=== PATIENT | female | born 2000 | race African-American/Black ===

== ENCOUNTER 2023-11-30 10:14 | Outpatient (REF) | payer MEDICAID, SELFPAY ==
[2023-11-30 11:33] LABS: MANUAL DIFF FLAG NO
[2023-11-30 12:01] LABS: Basophils Percent Auto 0.4 % (0-2); Eosinophils Absolute Auto 0.1 X10*3/uL (0.0-0.4); Eosinophils Percent Auto 0.9 % (0-4); Hematocrit 36.3 % (37.0-47.0); Hemoglobin 11.2 g/dl (12.0-16.0); Imm Gran Abs Auto 0.02 X10*3/uL (0.00-0.03); Imm Gran Pct Auto 0.4 % (0.0-0.4); Lymphocytes Absolute Auto 2.5 X10*3/uL (1.2-4.9); Lymphocytes Percent Auto 46.3 % (20-40); Mean Corpuscular HGB Conc 30.9 g/dl (31.0-35.0); Mean Corpuscular Hemoglobin 23.1 pg (27.0-33.0); Monocytes Absolute Auto 0.5 X10*3/uL (0.1-1.2); Monocytes Percent Auto 9.3 % (2-11); Neutrophils Absolute Auto 2.4 x10*3/uL (2.0-8.3); Neutrophils Percent Auto 42.7 % (45-73); Platelet Count 361 X10*3/uL (160-400); Red Blood Count 4.84 X10*6/uL (4.20-5.50); Red Cell Distribution Width 17.4 % (11.0-16.0); White Blood Count 5.5 X10*3/uL (4.8-10.8)
[2023-11-30 12:41] LABS: Estimated Average Glucose 111 mg/dL; Hemoglobin A1c % 5.5 % (<6.0)
[2023-11-30 12:43] LABS: Alanine Aminotransferase 16 U/L (0-31); Albumin Level 3.8 g/dL (3.5-5.0); Alkaline Phosphatase 56 U/L (39-117); Anion Gap 9 (12-20); Aspartate Amino Transferase 17 U/L (5-31); Bilirubin Total 0.5 mg/dL (0.0-1.0); Blood Urea Nitrogen 10 mg/dL (9-16); Calcium 8.9 mg/dL (8.4-10.2); Carbon Dioxide 27 mmol/L (22-29); Chloride 108 mmol/L (96-108); Cholesterol 173 mg/dL (<200); Estimated Glomerular Filt Rate > 60; Glucose Random 104 mg/dL (60-115); HDL Cholesterol 46 mg/dL (>40); LDL Cholesterol Calculated 115 mg/dL (<100); Potassium 4.1 mmol/L (3.3-5.1); Sodium 140 mmol/L (135-145); TSH reflex Free T4 1.55 uIU/mL (0.32-4.0); Triglycerides 61 mg/dL (<150); Vitamin D 25-OH Total 10.9 ng/mL (>30)
[2023-11-30 12:56] LABS: HBc Num1 4.52 S/CO (0.00-0.79)
[2023-12-01 08:12] LABS: HBc Num3 4.63 S/CO; Hepatitis B Core Antibody Reactive (Nonreactive)
[2023-12-02 17:18] LABS: Hepatitis B Core Antibody IgM NON-REACTIVE (NON-REACTIVE)
== END 2023-11-30 10:15 | disposition home or self-care (01) ==
LOC: HO.HHCL 10:14
PROVIDERS: Visit Provider General Practice
DX: Z00.00 Encounter for general adult medical examination without abnormal findings (principal)
CPT/HCPCS: 36415; 80053; 80061; 82306; 83036; 84443; 85025; 86704; 86705

== ENCOUNTER 2023-12-27 14:36 | Outpatient (REF) | payer MEDICAID, SELFPAY ==
[2023-12-27 17:10] LABS: Folate 12.5 ng/mL (> or = 4.0); Vitamin B12 384 pg/mL (200-900)
[2023-12-28 05:56] LABS: HBsAGNum2 Reactive; HBsAGNum3 Reactive
[2023-12-28 05:57] LABS: Hepatitis B Surface Antigen Retest CNFM (Negative)
== END 2023-12-27 14:37 | disposition home or self-care (01) ==
LOC: HO.HHCL 14:36
PROVIDERS: Visit Provider General Practice
DX: B18.1 Chronic viral hepatitis B without delta-agent (principal); E66.3 Overweight
CPT/HCPCS: 36415; 82607; 82746; 87340

== ENCOUNTER 2024-03-08 16:44 | Outpatient (REF) | payer MEDICAID, SELFPAY ==
[2024-03-11 01:38] LABS: TS Negative Control Passed; TS Panel A 0; TS Panel B 0; TS Positive Control Passed; TSpotTB Negative (Negative)
== END 2024-03-08 16:45 | disposition home or self-care (01) ==
LOC: HO.HHCL 16:44
PROVIDERS: Visit Provider General Practice
DX: Z02.1 Encounter for pre-employment examination (principal)
CPT/HCPCS: 36415; 86481

== ENCOUNTER 2025-03-13 11:04 | Outpatient (REF) | payer MEDICAID, SELFPAY ==
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
--- OUTSIDE RECORDS SUMMARY | 2025-03-13 12:34 | XMS_ITS | Encounter Summary ---
Author Organization [employer] Address [address] [facility] [address] [place] [address] Care Team Providers Care Supervisor [employer] Name Role Phone Yanique Matos MD Primary Care Provider [phone] Encounter Details Date Type Department Care Team (Late st Contact Info) Description 12/27/2023 Orders Only [facility] [address] [place], [place] [phone] Yanique Matos MD [address] [place], [place] [phone] Overweight (Primary Dx) Social History Tobacco Use Types Packs/Day Years Used Date Smoking Tobacco: Never Smokeless Tobacco: Never Alcohol Use Standard Drinks/Week Comments Never 0 (1 standard drink = 0.6 oz pur e alcohol) Depression Answer Date Recorded Patient Health Questionnaire-9 Score 0 11/30/2023 Patient Health Questionnaire-9 Score 0 11/30/2023 Last PHQ-9: Questionnaire Data Not on file 0 11/30/2023 Housing Stability Answer Date Recorded What is your housing situation today? I have doc estrella 11/30/[address] you li ve. Do you have problems with any of the following? None of the above 11/30/2023 Food Insecurity Answer Date Recorded Within the past 12 months, y ou worried that your food would run out before you got money to buy more: Never True 11/30/2023 Within the past 12 months,th e food you bought just didn't last and you didn't have enough money to get more: Never True Transportation Answer Date Recorded In the past 12 months, has l ack of transportation kept you from medical appts, meetings, work or from getting things needed for daily living? No 11/30/2023 Utilities Answer Date Recorded In the past 12 months, has t he electric, gas, oil or water company threatened to shut off services in your home? I am not sure 11/30/2023 Depression Answer Date Recorded Patient Health Questionnaire-2 Score 0 11/30/2023 Comments Unknown Sex and Gender Information Value Date Recorded Sex Assigned at Female 04/13/2022 10:16 AM EDT Legal Sex Female 10:16 AM EDT Gender Identity Female 04/13/2022 10:16 AM EDT Sexual Orientation Choose not to disclose 2021 10:16 AM EDT documented as of this encounter Plan of Treatment Not on file documented as of this encounter Procedures Procedure Name Priority Date/Time Associated Diagnosis Comments HEPATITIS B SURFACE ANTIGEN CONFIRMATION Routine 12/27/2023 2:38 PM EDT Overweight VITAMIN B12/FOLATE, SERUM PANEL Routine 12/27/2023 2:38 PM EDT Overweight documented in this encounter Results * Hepatitis B Surface Antigen Confirmation (12/27/2023 2:38 PM EDT) Hepatitis B Surface Ag REACTIVE (Abnormal) [facility] Comment:REFERENCE RANGE: NON -REACTIVEFor additional information, please refer tohttp://education.[employer]/faq/FPX061(This link is being provided for informational/educational purposes only.)THIS TEST PERFORMED AT:[facility] [place] [phone] DIRECTOR: MILLIE TRAORE MD Hepatitis B Surface Antigen Confirmation TNP [facility] 12/27/2023 2:38 PM EDT 12/28/2023 5:57 AM EDT us Yanique Matos MD LAB BLOOD ORDERABLES Final Res ult [facility] [address] [place] [phone] * Vitamin B12/Folate, Serum Panel (12/27/2023 2:38 PM EDT) Vitamin B12 384 200 - 900 pg/mL [facility] Comment:NORMAL 200-900 PG/ML INDETERMINATE 160-199 PG/ML DEFICIENT < 160 PG/ML Folate 12.5 > or = 4.0 ng/mL [facility] Comment:Reference Values:> o r = 4.0 ng/mL< 4.0 ng/mL suggests folate deficiency Methotrexate, aminopterin and folinic acid(leucovorin) are chemotherapeutic agents whose molecularstructures are similar to folate; therefore, the Architectfolate assay cannot be used for patients using these drugs. Blood Venous blood specimen / Unknown 12/27/2023 2:38 PM EDT 12/27/2023 4:17 PM EDT us Yanique Matos MD LAB BLOOD ORDERABLES Final Res ult [facility] [address] [place] [phone] documented in this encounter Visit Diagnoses Diagnosis Overweight- Primary documented in this encounter Additional Health Concerns Assessment Noted Time PHQ-9 Depression Total Score: 0 11/30/19 24 9:29 AM EDT documented as of this encounter Care Teams Supervisor [employer] Relationship Specialty Start Date End Date Yanique Matos MD [address] [place] [address] PCP - General Family Medicine 09/24/23 documented as of this encounter
--- OUTSIDE RECORDS SUMMARY | 2025-03-13 12:34 | XMS_ITS | Encounter Summary ---
Author Organization [employer] Address [address] [facility] [address] [place] [address] Care Team Providers Care Flight Attendant Inflight Services Name Role Phone Yanique Matos MD Primary Care Provider [phone] Encounter Details Date Type Department Care Team (Late st Contact Info) Description 03/08/2024 Orders Only [facility] [address] [place], [place] [phone] Yanique Matos MD [address] [place], [place] [phone] Pre-employment examination (Primary Dx) Social History Tobacco Use Types [...] Recorded Patient Health Questionnaire-2 Score 0 11/30/2023 Internet Access Answer Date Recorded Internet Access Q1 Yes 02/14/2024 Internet Access Q2 Not on file 02/14/2024 Comments Unknown Sex and Gender Information Value [...] Procedure Name Priority Date/Time Associated Diagnosis Comments T-SPOT(R).TB Routine 03/08/2024 4:45 PM EDT Pre-employment examination documented in this encounter Results * T-SPOT??.TB (03/08/2024 4:45 PM EDT) T Spot TB Negative Negative [facility] Comment:A negative test resu lt does not exclude the possibilityof exposure to or infection with Mycobacteriumtuberculosis (M. tuberculosis). Patients with recentexposure to TB infected individuals exhibiting anegative T-SPOT.TB result should be considered forretesting within 6 weeks or if other relevant clinicalsymptoms indicate. Results from T-SPOT.TB testing mustbe used in conjunction with each individual'sepidemiological history, current medical status,and results of other diagnostic evaluations.The T-SPOT.TB test is qualitative and results arereported as positive, borderline, or negative, giventhat the test controls perform as expected. In linewith the Centers for Disease Control and Prevention's2010 recommendation to report quantitative measurementsalongside the qualitative result, the laboratoryprovides spot counts for informational purposes only.The T-SPOT.TB test should not be interpreted as aquantitative test. TS PANEL A 0 [facility] TS PANEL B 0 [facility] Negative Control Passed [facility] Positive Control Passed [facility] Comment:For additional infor wen, please refer tohttp://education.[employer]/faq/AQP131(This link is being provided for informational/educational purposes only.)THIS TEST WAS PERFORMED AT:[facility] [id number] [place] [address]ETFVMRNANA MARIA OFNSECA MD,PHD 03/08/2024 4:45 PM EDT 03/08/2024 5:35 PM EDT us Yanique Matos MD LAB BLOOD ORDERABLES Final Res ult [facility] [address] [place] [phone] documented in this encounter Visit Diagnoses Diagnosis Pre-employment examination- Primary documented in this encounter Additional Health Concerns Assessment Noted Time PHQ-9 Depression Total Score: 0 11/30/19 24 9:29 AM EDT documented as of this encounter Care Teams Flight Attendant Inflight Services Relationship Specialty Start Date End Date Yanique Matos MD [address] [place] [address] PCP - General Family Medicine 09/24/23 documented as of this encounter
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
--- OUTSIDE RECORDS SUMMARY | 2025-03-13 12:34 | XMS_ITS | Encounter Summary ---
Author Organization [employer] Address [address] [facility] [address] [place] [address] Care Team Providers Care Peanut Separator Name Role Phone Yanique Matos MD Primary Care Provider [phone] Encounter Details Date Type Department Care Team (Latest Contact Info) Description 03/12/2025 Travel Social History Tobacco Use Types Packs/Day Years [...] on file documented as of this encounter Visit Diagnoses Not on filedocumented in this encounter Additional Health Concerns Assessment Noted Time PHQ-9 Depression Total Score: 0 11/30/19 24 9:29 AM EDT documented as of this encounter Care Teams Peanut Separator Relationship Specialty Start Date End Date Yanique Matos MD [address] [place] [address] PCP - General Family Medicine 09/24/23 documented as of this encounter
--- OUTSIDE RECORDS SUMMARY | 2025-03-13 12:34 | XMS_ITS | Encounter Summary ---
Author Organization [employer] Address [address] [place] [address] [address] [place] [address] Care Team Providers Care Optical Store Manager Name Role Phone Gary Caroline BEATTYP Primary Care Provider [phone] Yanique Matos MD Primary Care Provider [phone] Encounter Details Date Type Department Care Team (Latest Contact Info) Description 10/18/2018 Abstract C CONVERSIONS Dental, Provider, DDS Social History Tobacco Use Types Packs/Day Years [...] Diagnoses Not on filedocumented in this encounter Care Teams Optical Store Manager Relationship Specialty Start Date End Date Caroline Vega FNP [address] [place] [address] PCP - General Family Medicine 11/24/21 09/23/23 Yanique Matos MD [address] [place] [address] PCP - General Family Medicine 09/24/23 documented as of this encounter
--- OUTSIDE RECORDS SUMMARY | 2025-03-13 12:34 | XMS_ITS | Encounter Summary ---
Author Organization [employer] Address [address] [facility] [address] [place] [address] Care Team Providers Care Intelligence Director Name Role Phone Yanique Matos MD Primary Care Provider [phone] Reason for Visit * Reason Onset Date Comments Chart Prep 03/12/2025 Encounter Details Date Type Department Care Team ([facility] st Contact Info) Description 03/12/2025 Telephone [facility] [address] [place], [place] [phone] Yanique Matos MD [address] [place] [address] Chart Prep Social History Tobacco Use Types Packs/Day Years [...] is your housing situation today? I have docajay estrella 03/13/[address] you [...] AM EDT documented as of this encounter Miscellaneous Notes * Telephone Encounter - Genny Machuca [place] - 03/12/2025 2:53 PM EDT Chart Prep Labs: done Images: not applicable Referrals: complete Vaccines due: Covid, Flu, PCV20, and MCV4 Screenings: pap smear, LMP, and HIV Screening, Hepatitis C Screening Overdue care gaps: SBIRT, SDOH, PHQ-9, and PIPPA-7 documented in this encounter Plan of Treatment Not on file documented as of this encounter Visit Diagnoses Not on filedocumented in this encounter Additional Health Concerns Assessment Noted Time PHQ-9 Depression Total Score: 0 11/30/19 24 9:29 AM EDT documented as of this encounter Care Teams Intelligence Director Relationship Specialty Start Date End Date Yanique Matos MD [address] [place] [address] PCP - General Family Medicine 09/24/23 documented as of this encounter
--- OUTSIDE RECORDS SUMMARY | 2025-03-13 12:34 | XMS_ITS | Encounter Summary ---
Author Organization [employer] Address [address] [facility] [address] [place] [address] Care Team Providers Care Tool Machinist Name Role Phone Yanique Matos MD Primary Care Provider [phone] Encounter Details Date Type Department Care Team (Latest Contact Info) Description 03/13/2025 Travel Social History Tobacco Use Types Packs/Day [...] AM EDT documented as of this encounter Functional Status * Over the past 2 weeks, how often have you been bothered by any of the following problems? Question Answer Date of Assessment Author Patient Health Questionnaire -2 Score 0 03/13/2025 10:38 AM KOLBYT Massiel Ochoa MA * Little interest or pleasure in doing things Answer Date of Assessment Author Not at all 03/13/2025 10:38 AM KOLBYT Massiel Ochoa MA * Feeling down, depressed, or hopeless Answer Date of Assessment Author Not at all 03/13/2025 10:38 AM Massiel Asencio MA * Trouble falling or staying asleep, or sleeping too much Answer Date of Assessment Author Not at all 03/13/2025 10:38 AM Massiel Asencio MA * Feeling tired or having little energy Answer Date of Assessment Author Not at all 03/13/2025 10:38 AM Massiel Asencio MA * Poor appetite or overeating Answer [...] Author Not at all 03/13/2025 10:38 AM EDT Massiel Ochoa MA * Thoughts that you would be better off or hurting yourself in some way Answer Date of Assessment Author Not at all 03/13/2025 10:38 AM Massiel Asencio MA * Patient Health Questionnaire-9 Score Answer Date of Assessment Author 0 03/13/2025 10:38 AM KOLBYT Massiel Ochoa MA * Over the last 2 weeks, how often have you been bothered by any of the following problems? Question Answer Date of Assessment Author Feeling nervous, anxious, or on edge 0 03/13/2025 10:37 AM EDT Massiel Ochoa MA Not being able to stop or co ntrol worrying 0 03/13/2025 10:37 AM Massiel Asencio MA Worrying too much about diff erent things 0 03/13/2025 10:37 AM EDT Massiel Ochoa MA Trouble relaxing 0 03/13/2025 10:37 AM EDT Massiel Ochoa MA Being so restless that it is hard to sit still 0 03/13/2025 10:37 AM KOLBYT Massiel Ochoa MA Becoming easily annoyed or irritable 0 03/13/2025 10:37 AM EDT Massiel Ochoa MA Feeling afraid as if somethi ng awful might happen 0 03/13/2025 10:37 AM EDT Massiel Ochoa MA PIPPA-7 Total Score 0 03/13/2025 10:37 AM EDT Massiel Ochoa MA documented as of this encounter Plan of Treatment Not on file documented as of this encounter Visit Diagnoses Not on filedocumented in this encounter Additional Health Concerns Assessment Noted Time PHQ-9 Depression Total Score: 0 03/13/20 25 10:38 AM EDT documented as of this encounter Care Teams Tool Machinist Relationship Specialty Start Date End Date Yanique Matos MD [address] [place] [address] PCP - General Family Medicine 09/24/23 documented as of this encounter
[2025-03-13 13:45] LABS: MANUAL DIFF FLAG NO
[2025-03-13 13:47] LABS: Hematocrit 40.6 % (37.0-47.0); Hemoglobin 13.0 g/dl (12.0-16.0); Imm Gran Abs Auto 0.01 X10*3/uL (0.00-0.03); Imm Gran Pct Auto 0.2 % (0.0-0.4); Lymphocytes Absolute Auto 2.0 X10*3/uL (1.2-4.9); Mean Corpuscular HGB Conc 32.0 g/dl (31.0-35.0); Mean Corpuscular Hemoglobin 25.9 pg (27.0-33.0); Mean Corpuscular Volume 80.9 fL (80.0-98.0); NRBC Abs Auto 0.000 X10*3/uL (0.0-0.012); NRBC Pct Auto 0.0 /100WBC (0.0-0.2); Platelet Count 321 X10*3/uL (160-400); Red Blood Count 5.02 X10*6/uL (4.20-5.50); White Blood Count 4.5 X10*3/uL (4.8-10.8)
[2025-03-13 13:55] LABS: Total Hemoglobin (HGBA1C) 3367.4809 umol/L
[2025-03-13 14:44] LABS: Alanine Aminotransferase 20 U/L (0-31); Albumin Level 4.4 g/dL (3.5-5.0); Alkaline Phosphatase 45 U/L (39-117); Anion Gap 11 (12-20); Aspartate Amino Transferase 24 U/L (5-31); Blood Urea Nitrogen 10 mg/dL (9-16); Calcium 9.1 mg/dL (8.4-10.2); Carbon Dioxide 26 mmol/L (22-29); Chloride 107 mmol/L (96-108); Estimated Glomerular Filt Rate > 60; Potassium 4.4 mmol/L (3.3-5.1); Sodium 140 mmol/L (135-145); Total Protein 7.5 g/dL (6.5-8.0)
== END 2025-03-13 11:05 | disposition home or self-care (01) ==
LOC: HO.HHCL 11:04
PROVIDERS: PCP General Practice; Visit Provider General Practice
DX: E66.812 Obesity, class 2 (principal); Z68.35 Body mass index [BMI] 35.0-35.9, adult
CPT/HCPCS: 36415; 80053; 83036; 85025